=== PATIENT | female | born 1990 | race Caucasian/White ===

== ENCOUNTER 2018-01-15 23:57 | Emergency (ER) | payer MEDICAID ==
[~2018-01-15] VITALS: Ht 157.5 cm; Wt 69.0 kg
[2018-01-16] MEDS ORDERED: SULF1TAB49 PO (00:16)
[2018-01-16] MEDS ORDERED: CEPH500C5 PO (00:16)
[2018-01-16 00:28] VITALS: BP 135/90
== END 2018-01-16 00:29 | disposition home or self-care (01) ==
LOC: ER 23:58
DX: L02.01 Cutaneous abscess of face (principal); L03.211 Cellulitis of face; Z79.899 Other long term (current) drug therapy
CPT/HCPCS: 99283